=== PATIENT | male | born 1980 | race Caucasian/White ===

== ENCOUNTER 2018-11-16 07:07 | Emergency (ER) | payer OTHER ==
[~2018-11-16] VITALS: Ht 175.3 cm; Wt 67.2 kg
[2018-11-16] MEDS ORDERED: IBUP200C25 PO (07:11)
[2018-11-16 07:26] VITALS: BP 128/82
[2018-11-16 07:37] LABS: BASO % 0.3 % (0.0-1.0); EOS # 0.1 10^3/uL (0.0-0.50); EOS % 1.4 % (0.0-3.0); HEMATOCRIT 41.1 % (42.0-52.0); HEMOGLOBIN 13.8 g/dl (13.5-17.5); LYMPH # 1.5 10^3/uL (1.5-4.5); LYMPH % 24.1 % (24.0-44.0); MEAN CORPUSCULAR HEMOGLOBIN 29.7 pg (27.0-33.0); MEAN CORPUSCULAR HGB CONC 33.6 g/dl (32.0-36.5); MEAN CORPUSCULAR VOLUME 88.4 fl (80.0-96.0); MONO # 0.7 10^3/uL (0.0-0.8); MONO % 11.2 % (0.0-5.0); NEUTROPHILS # 3.9 10^3/uL (1.8-7.7); NEUTROPHILS % 62.7 % (36.0-66.0); PLATELET COUNT, AUTOMATED 128 10^3/uL (150-450); RED BLOOD COUNT 4.65 10^6/uL (4.30-6.10); WHITE BLOOD COUNT 6.3 10^3/uL (4.0-10.0)
--- NOTE | 2018-11-16 07:47 | REP ---
PA and lateral chest: There are no comparisons. There is a right upper lobe infiltrate. Left lung is clear. There are no pleural effusions. Cardiac size is normal. The elidia, mediastinum, skeletal structures are unremarkable. Impression: Right upper lobe infiltrate. Electronically Signed by Ajay Zamudio MD 11/16/2018 07:39 A
[2018-11-16 08:02] LABS: BLOOD UREA NITROGEN 16 MG/DL (7-18); CALCIUM LEVEL 8.4 MG/DL (8.5-10.1); CARBON DIOXIDE LEVEL 28 MEQ/L (21-32); CHLORIDE LEVEL 106 MEQ/L (98-107); CREATININE FOR GFR 1.05 MG/DL (0.70-1.30); GLOMERULAR FILTRATION RATE > 60.0 (>60); GLUCOSE, FASTING 91 MG/DL (70-100); INFLUENZA A AMPLIFICATION NEGATIVE (NEGATIVE); INFLUENZA B AMPLIFICATION NEGATIVE (NEGATIVE); MONO SCRN NEGATIVE (NEGATIVE); POTASSIUM SERUM 4.2 MEQ/L (3.5-5.1); SODIUM LEVEL 142 MEQ/L (136-145)
[2018-11-16] MEDS ORDERED: AZIT-12 PO (08:13)
[2018-11-16] MEDS ORDERED: AZITHROMYCIN 250 MG TAB PO ONE (08:30)
== END 2018-11-16 08:23 | disposition home or self-care (01) ==
LOC: M ED 07:07
DX: J18.9 Pneumonia, unspecified organism (principal); R05 Cough; Z20.89 Contact with and (suspected) exposure to other communicable diseases